=== PATIENT | female | born 1985 ===

== ENCOUNTER 2017-12-26 15:15 | Emergency (ER) | payer MEDICAID ==
[2017-12-26 15:23] VITALS: TEMP 98.7; O2SAT 100
[2017-12-26] MEDS ORDERED: diaZEpam 10 mg/2 ml Inj IVP STA (15:34)
[2017-12-26] MEDS: Sodium Chloride 0.9% 1,000 ML IV STA (15:54)
--- NOTE | 2017-12-26 16:07 | ED PDOC ---
HPI: General Adult Time Seen by Provider: 12/26/17 15:32 Chief Complaint (Nursing): Weakness/Neurological Deficit Chief Complaint (Provider): Dizziness History Per: Patient History/Exam Limitations: no limitations Additional Complaint(s): Pt BIBA with c/o dizziness/vertigo X 1 week, worse today while at school, associated with whole body numbness and generalized weakness. Last took Meclizine @ 2 PM today without relief. Pt states she has h/o same vertigo and "ear problem" (Meniere's disease?). Denies PERALTA, focal weakness, nausea, vomiting, visual changes, CP, SOB. NIHSS Stroke Scale - Date/Time Evaluation Performed Date Performed: 12/26/17 Time Performed: 15:30 - How Severe is the Stroke Level of Consciousness: 0=Alert LOC to Questions: 0=Both comments correct LOC to commands: 0=Obeys both correctly Best Gaze: 0=Normal Visual: 0=No visual loss Facial: 0=Normal Motor Arm - Left: 0=No drift Motor Arm - Right: 0=No drift Motor Leg - Left: 0=No drift Motor Leg - Right: 0=No drift Limb Ataxia: 0=Absent Sensory: 0=Normal Best Language: 0=No aphasia Dysarthia: 0=Normal articulation Extinction & Inattention (Neglect): 0=Normal, no object Score: 0 Past Medical History Reviewed: Nursing Documentation, Vital Signs Vital Signs: Last Vital Signs Temp 98.7 F 12/26/17 15:19 Pulse 77 12/26/17 15:19 Resp 16 12/26/17 15:19 BP 129/81 12/26/17 15:19 Pulse Ox 100 12/26/17 15:19 - Medical History Other PMH: Vertigo - Surgical History Other surgeries: Tubal ligation - Social History Current smoker - smoking cessation education provided: No Alcohol: None - Home Medications Home Medications: Ambulatory Orders Medication Instructions Recorded Meclizine [Antivert] 25 mg PO TID PRN #20 tab 11/28/16 diaZEpam [Valium] 5 mg PO BID PRN #20 tab 12/26/17 - Allergies Allergies/Adverse Reactions: Allergies Allergy/AdvReac Type Severity Reaction Status Date / Time No Known Allergies Allergy Verified 12/26/17 15:18 Review of Systems Constitutional: Negative for: Fever, Chills Eyes: Negative for: Vision Change Cardiovascular: Negative for: Chest Pain Respiratory: Negative for: Cough, Shortness of Breath Gastrointestinal: Negative for: Nausea, Vomiting, Abdominal Pain, Diarrhea Genitourinary Female: Negative for: Hematuria Skin: Negative for: Rash, Lesions Neurological: Positive for: Weakness (Generalized), Numbness (Generalized), Dizziness. Negative for: Incoordination, Confusion, Seizures, Altered Mental Status, Headache Physical Exam - Reviewed Nursing Documentation Reviewed: Yes Vital Signs Reviewed: Yes - Physical Exam Appears: Positive for: No Acute Distress Head Exam: Positive for: ATRAUMATIC, NORMAL INSPECTION Skin: Positive for: Normal Color, Warm, Dry Eye Exam: Positive for: Normal appearance, EOMI, PERRL, Nystagmus Cardiovascular/Chest: Positive for: Regular Rate, Rhythm Respiratory: Positive for: Normal Breath Sounds Gastrointestinal/Abdominal: Positive for: Normal Exam Extremity: Positive for: Normal ROM Neurologic/Psych: Positive for: Alert, automobile service station mechanic II-XII, Oriented, Gait (UTD). Negative for: Motor/Sensory Deficits, Aphasia, Facial Droop - Laboratory Results Result Diagrams: 12/26/17 15:34 12/26/17 15:44 - ECG O2 Sat by Pulse Oximetry: 100 - Physician Consult Information Time Consulting Physican Contacted: 18:57 Physician Contacted: Cordell Ortega Outcome Of Conversation: Recommends Valium 5 mg PO q12h prn, #20 tabs. Call for appt to be seen in 1-2 weeks. Medical Decision Making Medical Decision Makin yo female with recurrent vertigo. - labs - EKG - CXR - CT head - Valium - IVF Accession No. : [id number] Patient Name / ID : ALEKSANDRA BARNES / [id number] Exam Date : 12/26/2017 16:04:57 ( Approved ) Study Comment : Sex / Age : F / 32Y Creator : annel hunter Dictator : Valentine Glover V. Sleeping Car Service Attendant : Research Administrator : Valentine Glover V. Approver2 : Report Date : 12/26/2017 16:10:26 My Comment : Date of service: 12/26/2017 PROCEDURE: CT HEAD WITHOUT CONTRAST. HISTORY: Vertigo COMPARISON: None available. TECHNIQUE: Axial computed tomography images were obtained through the head/brain without intravenous contrast. Radiation dose: Total exam DLP = 839.6 mGy-cm. This CT exam was performed using one or more of the following dose reduction techniques: Automated exposure control, adjustment of the mA and/or kV according to patient size, and/or use of iterative reconstruction technique. FINDINGS: HEMORRHAGE: No intracranial hemorrhage. BRAIN: No mass effect or edema. No atrophy or chronic microvascular ischemic changes. VENTRICLES: Unremarkable. No hydrocephalus. CALVARIUM: Unremarkable. PARANASAL SINUSES: Unremarkable as visualized. No significant inflammatory changes. MASTOID AIR CELLS: Unremarkable as visualized. No inflammatory changes. OTHER FINDINGS: None. IMPRESSION: Normal CT of the Head. 18:20 Pt feels much better. Disposition - Clinical Impression Clinical Impression: Vertigo - Disposition Referrals: Cordell Ortega MD [Medical Doctor] - Disposition: Routine/Home Disposition Time: 18:58 Condition: IMPROVED Prescriptions: diaZEpam [Valium] 5 mg PO BID PRN #20 tab PRN Reason: Dizziness Instructions: Vertigo (a Type of Dizziness) Forms: [employer] (Albanian)
--- NOTE | 2017-12-26 16:24 | CT ---
Date of service: 12/26/2017 PROCEDURE: CT HEAD WITHOUT CONTRAST. HISTORY: Vertigo COMPARISON: None available. TECHNIQUE: Axial computed tomography images were obtained through the head/brain without intravenous contrast. Radiation dose: Total exam DLP = 839.6 mGy-cm. This CT exam was performed using one or more of the following dose reduction techniques: Automated exposure control, adjustment of the mA and/or kV according to patient size, and/or use of iterative reconstruction technique. FINDINGS: HEMORRHAGE: No intracranial hemorrhage. BRAIN: No mass effect or edema. No atrophy or chronic microvascular ischemic changes. VENTRICLES: Unremarkable. No hydrocephalus. CALVARIUM: Unremarkable. PARANASAL SINUSES: Unremarkable as visualized. No significant inflammatory changes. MASTOID AIR CELLS: Unremarkable as visualized. No inflammatory changes. OTHER FINDINGS: None. IMPRESSION: Normal CT of the Head.
[2017-12-26 16:34] LABS: BASO % 0.3 % (0.0-2.0); EOS # 0.1 K/uL (0.0-0.7); EOS % 0.7 % (0.0-4.0); HEMOGLOBIN 11.7 g/dL (12.0-16.0); LYMPH # 2.5 K/uL (1.0-4.3); LYMPH % 34.7 % (20.0-40.0); MEAN CELL VOLUME 83.9 fl (81.0-99.0); MEAN CORPUSCULAR HEMOGLOBIN 27.8 pg (27.0-31.0); MEAN CORPUSCULAR HGB CONC 33.2 g/dL (33.0-37.0); MEAN PLATELET VOLUME 7.2 fl (7.2-11.7); MONO # 0.5 K/uL (0.0-0.8); MONO % 6.8 % (0.0-10.0); NEUT # 4.1 K/uL (1.8-7.0); NEUT % 57.5 % (50.0-75.0); NRBC % 0.1 % (0.0-0.0); RBC 4.2 Mil/uL (3.80-5.20); RED CELL DISTRIBUTION WIDTH 12.5 % (11.5-14.5); WHITE BLOOD COUNT 7.1 K/uL (4.8-10.8)
[2017-12-26 16:35] LABS: SQUAMOUS EPITHIAL 2 /hpf (0-5); URINE BACTERIA RARE (<OCC); URINE BILIRUBIN NEGATIVE (NEGATIVE); URINE BLOOD SMALL (NEGATIVE); URINE CLARITY CLEAR (Clear); URINE GLUCOSE (UA) NEG (Normal); URINE LEUKOCYTE ESTERASE NEG Leu/uL (Negative); URINE PROTEIN NEGATIVE (NEGATIVE); URINE UROBILINOGEN 0.2-1.0 mg/dL (0.2-1.0)
[2017-12-26 16:44] LABS: URINE COLOR 4 (YELLOW)
[2017-12-26 16:45] LABS: INR 1.1; PROTHROMBIN TIME 12.4 Seconds (9.8-13.1)
[2017-12-26 16:46] LABS: ALB/GLOB RATIO 1.1 (1.0-2.1); ALBUMIN 4.3 g/dL (3.5-5.0); ALT/SGPT 45 U/L (9-52); AST/SGOT 31 U/L (14-36); BLOOD UREA NITROGEN 16 mg/dl (7-17); CALCIUM 9.5 mg/dL (8.4-10.2); GFR NON-AFRICAN AMERICAN > 60
[2017-12-26 16:47] LABS: PARTIAL THROMBOPLASTIN TIME 28.2 Seconds (25.6-37.1)
[2017-12-26 16:55] VITALS: BP 115/79; PULSE 85; RESP 18
--- NOTE | 2017-12-26 18:31 | RAD ---
Date of service: 12/26/2017 HISTORY: Vertigo COMPARISON: No prior. FINDINGS: LUNGS: The lungs are well inflated and clear. PLEURA: No pleural effusions or pneumothorax. CARDIOVASCULAR: The heart is normal in size. No aortic atherosclerotic calcification present. OSSEOUS STRUCTURES: Within normal limits for the patient's age. VISUALIZED UPPER ABDOMEN: Normal. OTHER FINDINGS: None. IMPRESSION: No active pulmonary disease.
--- NOTE | 2017-12-27 10:41 | CARD ---
APPROVED REPORT Date of service: 12/26/2017 EKG Measurement Heart [id number] <Conclusion> Normal sinus rhythm Normal ECG
== END 2017-12-26 19:22 | disposition home or self-care (01) ==
LOC: H.ER 15:15
DX: R42 Dizziness and giddiness (principal)
CPT/HCPCS: 70450; 71045; 80053; 81003; 81025; 82948; 84702; 85025; 85610; 85730; 86850; 86900; 93005; 99285; J7030

== ENCOUNTER 2018-01-14 09:32 | Emergency (ER) | payer MEDICAID ==
[2018-01-14 09:33] VITALS: BMI 29.2
[2018-01-14 09:34] VITALS: BP 135/83; PULSE 88; RESP 18; TEMP 97.6; O2SAT 100
[2018-01-14] MEDS ORDERED: Sodium Chloride 0.9% 1,000 ML IV STA (09:56)
--- NOTE | 2018-01-14 09:59 | ED PDOC ---
Syncope/Near Syncope/Dizziness Time Seen by Provider: 01/14/18 09:46 Chief Complaint (Nursing): Dizziness/Lightheaded History Per: Patient Onset/Duration Of Symptoms: Other (2 weeks) Current Symptoms Are (Timing): Intermittent Episodes Activity At Onset Of Symptoms: Change In Head Position Associated Symptoms Preceding Syncopal Episode: Vertigo Worse With Change In Head Position Seizure Or Post-ictal Symptoms: None Possible Causative Factor(s): Vertigo Fall Associated With With Symptoms: No Severity: Moderate Additional Complaint(s): Dizziness, feels like room is spinning around her. Worse on movement of head. Assoc with nausea. Denies chest pain palpitations or headache. No peripheral focal weakness. Seen here 12/26 for same with nl w/u including CT head and EKG. Past Medical History Vital Signs: Last Vital Signs Temp 97.6 F 01/14/18 09:33 Pulse 88 01/14/18 09:33 Resp 18 01/14/18 09:33 BP 135/83 01/14/18 09:33 Pulse Ox 100 01/14/18 09:33 - Medical History PMH: No Chronic Diseases - Family History Family History: States: Unknown Family Hx - Home Medications Home Medications: Ambulatory Orders Medication Instructions Recorded Meclizine [Antivert] 25 mg PO TID PRN #20 tab 11/28/16 diaZEpam [Valium] 5 mg PO BID PRN #20 tab 12/26/17 Metoclopramide HCl [Reglan] 5 mg PO Q8 #12 tab 01/14/18 - Allergies Allergies/Adverse Reactions: Allergies Allergy/AdvReac Type Severity Reaction Status Date / Time No Known Allergies Allergy Verified 12/26/17 15:18 Review of Systems ROS Statement: Except As Marked, All Systems Reviewed And Found Negative Neurological: Positive for: Dizziness Physical Exam - Reviewed Nursing Documentation Reviewed: Yes Vital Signs Reviewed: Yes - Physical Exam Appears: Positive for: Non-toxic, No Acute Distress Head Exam: Positive for: ATRAUMATIC, NORMAL INSPECTION, NORMOCEPHALIC Skin: Positive for: Normal Color, Warm, DRY Eye Exam: Positive for: EOMI, Normal appearance, PERRL ENT: Positive for: Normal ENT Inspection Neck: Positive for: Normal, Painless ROM Cardiovascular/Chest: Positive for: Regular Rate, Rhythm Respiratory: Positive for: CNT, Normal Breath Sounds Gastrointestinal/Abdominal: Positive for: Normal Exam, Soft Back: Positive for: Normal Inspection Extremity: Positive for: Normal ROM Neurologic/Psych: Positive for: Alert, Oriented - ECG O2 Sat by Pulse Oximetry: 100 Disposition - Clinical Impression Clinical Impression: Vertigo - Patient ED Disposition Is Patient to be Admitted: No Counseled Patient/Family Regarding: Studies Performed, Diagnosis, Need For Followup, Rx Given - Disposition Referrals: Mark Sullivan MD [Staff Provider] - Disposition: Routine/Home Disposition Time: 11:43 Condition: FAIR Prescriptions: Metoclopramide HCl [Reglan] 5 mg PO Q8 #12 tab Instructions: Vertigo (a Type of Dizziness) Forms: [employer] (Ugandan)
== END 2018-01-14 12:44 | disposition home or self-care (01) ==
LOC: H.ER 09:32
DX: R42 Dizziness and giddiness (principal)
CPT/HCPCS: 82948; 99283; J7030